=== PATIENT | female | born 1995 | race Caucasian/White ===

== ENCOUNTER 2022-07-13 13:06 | Outpatient (REF) | payer OTHER, SELFPAY ==
[2022-07-15 13:45] LABS: Chlamydia Result Negative (Negative); GC Result Negative (Negative)
== END 2022-07-13 13:07 | disposition home or self-care (01) ==
LOC: LBN 13:06
PROVIDERS: Visit Provider Obstetrics & Gynecology Gynecology
DX: Z11.3 Encounter for screening for infections with a predominantly sexual mode of transmission (principal)
CPT/HCPCS: 87491; 87591

== ENCOUNTER 2022-08-24 14:14 | Outpatient (REF) | payer OTHER, SELFPAY ==
--- NOTE | 2022-08-24 13:00 | PAPFT_PTH ---
PATIENT: Mey Perez LOC: [facility] U#:[id number] AGE/SX: 26/F ROOM: RE08/24/[address]: Suha Marsh : 1995 BED: DIS: 08/24/2022 SPEC #: [id number] RECD: 08/24/22 18:12 STATUS: JEREMIAH REQ #: [id number] KOFI: 08/24/22 13:[address]: Suha Marsh DEPT: [facility] Cytology RECD BY: Dione Drake ENTERED: 08/24/22 18:12 SP TYPE: PAPFT OTHR DR: Dayana Herrera Tissues: 1 - CX/ENDOCX FOR PAP SMEARS Procedures: PAP THIN PREP/[facility] Screening Comments: [id number]
== END 2022-08-24 14:15 | disposition home or self-care (01) ==
LOC: LBN 14:14
PROVIDERS: PCP Physician Assistant Medical; Visit Provider Obstetrics & Gynecology Gynecology
DX: Z12.4 Encounter for screening for malignant neoplasm of cervix (principal)
CPT/HCPCS: 88142